=== PATIENT | female | born 1955 | race Caucasian/White ===

== ENCOUNTER 2024-06-14 03:31 | Emergency (ER) | payer MEDICARE ==
[2024-06-14] MEDS ORDERED: Ondansetron PF 4 MG/2 ML Vial ONE (04:28)
[2024-06-14] MEDS ORDERED: Morphine 4 MG/ML VIAL ONE (04:28)
[2024-06-14] MEDS ORDERED: PROPOFOL 20 ML ONE (04:28)
[2024-06-14] MEDS ORDERED: Ketorolac Tromethamine 30 MG (1 mL) VIAL ONE (09:10)
== END 2024-06-14 09:20 | disposition home or self-care (01) ==
LOC: ERS 03:31
DX: S43.004A Unspecified dislocation of right shoulder joint, initial encounter (principal); I11.0 Hypertensive heart disease with heart failure; I50.9 Heart failure, unspecified; J44.9 Chronic obstructive pulmonary disease, unspecified; X58.XXXA Exposure to other specified factors, initial encounter
CPT/HCPCS: 23650; 73030; 96374; 96375; 99152; 99284; J1885; J2272; J2405; J2704